=== PATIENT | female | born 1950 | race Caucasian/White ===

== ENCOUNTER → 2016-12-01 | Outpatient (CLI) | payer MEDICARE | DX: M81.0 Age-related osteoporosis without current pathological fracture (principal); R35.0 Frequency of micturition | CPT/HCPCS: 87077; 87086; 87186 ==

== ENCOUNTER → 2021-04-01 | Outpatient (CLI) | payer MEDICARE, OTHER | LOC: RAD 12:48 | DX: M25.511 Pain in right shoulder (principal) | CPT/HCPCS: 72050; 73030 ==

== ENCOUNTER → 2021-07-19 | Outpatient (CLI) | payer MEDICARE | LOC: EMI 09:55 | DX: M43.12 Spondylolisthesis, cervical region (principal); M43.16 Spondylolisthesis, lumbar region; M54.50 Low back pain, unspecified; G89.29 Other chronic pain; M51.36 Other intervertebral disc degeneration, lumbar region; M48.061 Spinal stenosis, lumbar region without neurogenic claudication; M48.07 Spinal stenosis, lumbosacral region; M47.22 Other spondylosis with radiculopathy, cervical region; M77.8 Other enthesopathies, not elsewhere classified | CPT/HCPCS: 72141; 72148 ==